=== PATIENT | female | born 1965 | race Caucasian/White ===

== ENCOUNTER 2017-12-21 06:01 | Inpatient (IN) | payer BC, OTHER ==
[~2017-12-21] VITALS: Ht 172.7 cm; Wt 71.6 kg
[~2017-12-21 06:01] MED LIST: DEXT1CAP3 PO; FLUO-103 PO; LISI2.5T2 PO
[2017-12-21] MEDS ORDERED: LORazepam 1 MG tablet PO ONE (06:25)
[2017-12-21] MEDS ORDERED: aspirin 325mg tablet PO ONE (06:45)
[2017-12-21] MEDS ORDERED: nitroGLYCERIN 0.4mg SUBLingual tab SL PRN ×3 (06:50→12:35)
[2017-12-21] MEDS ORDERED: nitroGLYCERIN 0.4mg/hour patch TD ONE (06:50)
[2017-12-21 07:08] LABS: BASOPHILS % (AUTO) 0.5 % (0-1); EOSINOPHILS # (AUTO) 0.1 X10'3 (0-0.9); EOSINOPHILS % (AUTO) 1.6 % (0-6); HEMOGLOBIN 13.8 g/dl (12.0-16.0); LYMPHOCYTES # (AUTO) 1.2 X10'3 (1.1-4.8); LYMPHOCYTES % (AUTO) 14.8 % (21-51); MEAN CORPUSCULAR HEMOGLOBIN 31.7 PG (27.0-31.0); MEAN CORPUSCULAR HGB CONC 35.4 % (33.0-36.5); MEAN CORPUSCULAR VOLUME 89.4 FL (78-98); MEAN PLATELET VOLUME 7.7 FL (7.4-10.4); MONOCYTES # (AUTO) 0.5 X10'3 (0-0.9); MONOCYTES % (AUTO) 6.5 % (2-12); NEUTROPHILS # (AUTO) 6.4 X10'3 (1.8-7.7); NEUTROPHILS % (AUTO) 76.6 % (42-75); PLATELET COUNT 217 X10'3 (140-440); RED BLOOD COUNT 4.37 X10'6 (4.20-5.60); RED CELL DISTRIBUTION WIDTH 13.3 % (11.5-14.5); WHITE BLOOD COUNT 8.4 X10'3 (4.5-11.0)
[2017-12-21 07:17] LABS: INR 0.9 INR; PROTHROMBIN TIME 9.8 SECONDS (9.0-12.0)
[2017-12-21 07:32] LABS: ALANINE AMINOTRANSFERASE 22 U/L (12-78); ALBUMIN 3.8 G/DL (3.4-5.0); ALBUMIN/GLOBULIN RATIO 1.2 (1.1-1.5); ALKALINE PHOSPHATASE 84 IU/L (46-116); ANION GAP 12 (8-16); ASPARTATE AMINO TRANSFERASE 18 U/L (10-37); BILIRUBIN,TOTAL 0.6 MG/DL (0.1-1.0); BLOOD UREA NITROGEN 9 MG/DL (7-18); BUN/CREATININE RATIO 11.8 (6.6-38.0); CALCIUM 8.7 MG/DL (8.5-10.1); CHLORIDE 107 MMOL/L (99-107); CREATININE 0.76 MG/DL (0.40-0.90); GLUCOSE 119 MG/DL (70-104); MAGNESIUM 1.8 MG/DL (1.5-2.4); POTASSIUM 3.6 MMOL/L (3.5-5.1); SODIUM 140 MMOL/L (135-145); TOTAL CARBON DIOXIDE 21.4 MMOL/L (24-32); TOTAL PROTEIN 7.1 G/DL (6.4-8.2); eGFR 81 ML/MIN
[2017-12-21] MEDS ORDERED: enoxaparin 100mg/ml syringe SUBCUT ONE (07:40)
[2017-12-21 08:10] LABS: URINE HCG NEGATIVE (NEG)
[2017-12-21 08:16] LABS: CLARITY,URINE SLIGHTLY CLOUDY (Clear); COLOR,URINE STRAW (Yellow); GLUCOSE, URINE NEGATIVE (Neg); KETONES,URINE 40 mg/dl (Neg); LEUKOCYTE ESTERASE ,URINE SMALL (Neg); NITRITES, URINE NEGATIVE (Neg); OCCULT BLOOD,URINE TRACE-LYSED (Neg); PROTEIN,URINE NEGATIVE (Neg); UROBILINOGEN,URINE 0.2 E.U/dL (0.2-1.0)
[2017-12-21 08:18] LABS: UA COLLECTION TYPE CLN CATCH MIDSTREAM
[2017-12-21 08:30] LABS: URINE AMPHETAMINE SCREEN NEGATIVE (Neg); URINE BARBITUATE SCREEN NEGATIVE (Neg); URINE BENZODIAZEPINES SCREEN NEGATIVE (Neg); URINE CANNABINOID SCREEN POSITIVE (Neg); URINE COCAINE SCREEN NEGATIVE (Neg); URINE METHADONE SCREEN NEGATIVE (Neg); URINE OPIATE SCREEN POSITIVE (Neg); URINE PHENCYCLIDINE SCREEN NEGATIVE (Neg)
[2017-12-21 08:33] LABS: SQUAMOUS EPITHELIAL CELL,UR MANY /LPF (FEW)
[2017-12-21 08:34] LABS: AMORPHOUS PHOSPHATES 2+; BACTERIA,URINE 2+ /HPF (Neg)
[2017-12-21 08:35] LABS: RBC,URINE 0-2 /HPF (0-2); WBC,URINE 0-4 /HPF (0-4)
[2017-12-21] MEDS ORDERED: ZONI100C42 PO (09:00)
[2017-12-21] MEDS ORDERED: acetaminophen 325mg tablet PO PRN ×2 (10:00)
[2017-12-21 10:48] LABS: CHOL/HDL RATIO 2.5 (0.00-4.99); CHOLESTEROL 163 MG/DL (0-200); CREATINE KINASE 44 U/L (26-192); HDL CHOLESTEROL 65 MG/DL (35-60); LDL CHOLESTEROL 87 MG/DL (50-100); TRIGLYCERIDES 83 MG/DL (20-135)
[2017-12-21 11:40] VITALS: BP 108/55
[2017-12-21] MEDS ORDERED: regadenoson 0.4mg/5ml syringe IV ONE (12:35)
[2017-12-21] MEDS ORDERED: aminophylline 250mg/10ml inj. IV PRN (12:35)
[2017-12-21] MEDS ORDERED: metoprolol tartrate 1mg/ml inj IV PRN (12:35)
[2017-12-21 15:00] VITALS: BP 106/78
[2017-12-21] MEDS: heparin, porcine 5000 units/ml vial SQ SCH ×2 (15:37→23:42)
[2017-12-21] MEDS: morphine 2 MG/ML inj. syringe IV PRN ×3 (15:37→23:21)
[2017-12-21 19:00] VITALS: BP 111/67
[2017-12-21] MEDS: QUINIDINE PO SCH (20:00)
[2017-12-21] MEDS: DEXTROMETHORPHAN HBR PO SCH (20:00)
[2017-12-21] MEDS ORDERED: aspirin 81mg tablet.DR PO ONE (20:55)
[2017-12-21] MEDS ORDERED: zonisamide 100mg capsule PO ONE (20:55)
[2017-12-21] MEDS ORDERED: atorvastatin 20mg tablet PO ONE (20:55)
[2017-12-21] MEDS ORDERED: aspirin 325mg tablet ONE (20:56)
[2017-12-21 23:00] VITALS: BP 93/48
[2017-12-22] VITALS (17 sets, daily range): BP systolic 82–156; BP diastolic 44–96
[2017-12-22] MEDS: LORazepam 1 MG tablet PO PRN ×3 (03:30→23:59)
[2017-12-22 05:55] LABS: BASOPHILS % (AUTO) 0.4 % (0-1); EOSINOPHILS # (AUTO) 0.1 X10'3 (0-0.9); EOSINOPHILS % (AUTO) 1.7 % (0-6); HEMOGLOBIN 12.1 g/dl (12.0-16.0); LYMPHOCYTES % (AUTO) 23.4 % (21-51); MEAN CORPUSCULAR HEMOGLOBIN 31.6 PG (27.0-31.0); MEAN CORPUSCULAR HGB CONC 34.7 % (33.0-36.5); MONOCYTES # (AUTO) 0.8 X10'3 (0-0.9); MONOCYTES % (AUTO) 9.5 % (2-12); NEUTROPHILS # (AUTO) 5.4 X10'3 (1.8-7.7); PLATELET COUNT 192 X10'3 (140-440); RED BLOOD COUNT 3.84 X10'6 (4.20-5.60); RED CELL DISTRIBUTION WIDTH 13.3 % (11.5-14.5); WHITE BLOOD COUNT 8.3 X10'3 (4.5-11.0)
[2017-12-22 06:13] LABS: ALANINE AMINOTRANSFERASE 11 U/L (12-78); ALBUMIN 3.3 G/DL (3.4-5.0); ALBUMIN/GLOBULIN RATIO 1.1 (1.1-1.5); ALKALINE PHOSPHATASE 71 IU/L (46-116); ANION GAP 6 (8-16); ASPARTATE AMINO TRANSFERASE 15 U/L (10-37); BILIRUBIN,TOTAL 0.6 MG/DL (0.1-1.0); BLOOD UREA NITROGEN 9 MG/DL (7-18); BUN/CREATININE RATIO 10.7 (6.6-38.0); CALCIUM 8.8 MG/DL (8.5-10.1); CHLORIDE 110 MMOL/L (99-107); CREATININE 0.84 MG/DL (0.40-0.90); GLUCOSE 85 MG/DL (70-104); POTASSIUM 4.5 MMOL/L (3.5-5.1); SODIUM 141 MMOL/L (135-145); TOTAL CARBON DIOXIDE 24.8 MMOL/L (24-32); TOTAL PROTEIN 6.4 G/DL (6.4-8.2); eGFR 72 ML/MIN
[2017-12-22] MEDS: lisinopril 10 MG tablet PO SCH (07:39)
[2017-12-22] MEDS: cefTRIAXone 1g/NS 100ml IVPB 100 ML IV SCH (08:00)
[2017-12-22] MEDS: QUINIDINE PO SCH ×2 (08:00→20:23)
[2017-12-22] MEDS: DEXTROMETHORPHAN HBR PO SCH ×2 (08:00→20:23)
[2017-12-22] MEDS ORDERED: FLUoxetine 10mg capsule PO SCH (08:00)
[2017-12-22] MEDS ORDERED: aminophylline inj. 10 ML IV ONE (08:57)
[2017-12-22] MEDS ORDERED: regadenoson 0.4mg/5ml syringe IV ONE (08:57)
[2017-12-22] MEDS: MESSAGE TO NURSING PO NR (10:00)
[2017-12-22] MEDS: morphine 2 MG/ML inj. syringe IV PRN (11:16)
[2017-12-22] MEDS ORDERED: LORazepam 2 mg/ml vial IV ONE ×2 (11:25→11:40)
[2017-12-22] MEDS: lactobacillus rhamnosus 10,000 MMU CELLS/CAPSULE PO SCH ×2 (11:46→16:40)
[2017-12-22] MEDS: heparin, porcine 5000 units/ml vial SQ SCH ×3 (11:46→23:59)
[2017-12-22] MEDS: aspirin 81mg tablet.DR PO SCH (11:46)
[2017-12-22] MEDS: zonisamide 100mg capsule PO SCH (20:23)
[2017-12-22] MEDS: atorvastatin 20mg tablet PO SCH (20:23)
[2017-12-23 03:00] VITALS: BP 92/52
[2017-12-23 06:00] VITALS: BP 122/66
[2017-12-23] MEDS: lactobacillus rhamnosus 10,000 MMU CELLS/CAPSULE PO SCH ×2 (07:30→16:59)
[2017-12-23] MEDS: heparin, porcine 5000 units/ml vial SQ SCH ×2 (07:53→17:00)
[2017-12-23] MEDS: aspirin 81mg tablet.DR PO SCH (07:53)
[2017-12-23] MEDS: lisinopril 10 MG tablet PO SCH (07:53)
[2017-12-23] MEDS: DEXTROMETHORPHAN HBR PO SCH ×2 (07:54→20:26)
[2017-12-23] MEDS: QUINIDINE PO SCH ×2 (07:54→20:26)
[2017-12-23] MEDS: cefTRIAXone 1g/NS 100ml IVPB 100 ML IV SCH (08:12)
[2017-12-23] MEDS: HYDROcodone/acetaminophen 5mg/325mg tablet PO PRN ×2 (08:12→20:32)
[2017-12-23] MEDS: MESSAGE TO NURSING PO NR (10:20)
[2017-12-23 11:00] VITALS: BP 105/63
[2017-12-23] MEDS ORDERED: ondansetron/PF 4mg/2ml inj IV PRN (13:45)
[2017-12-23] MEDS ORDERED: morphine 2 MG/ML inj. syringe IV PRN (13:45)
[2017-12-23] MEDS: morphine 2 MG/ML inj. syringe IV PRN (14:41)
[2017-12-23 15:00] VITALS: BP 109/62
[2017-12-23 19:00] VITALS: BP 94/58
[2017-12-23] MEDS: zonisamide 100mg capsule PO SCH (20:26)
[2017-12-23] MEDS: atorvastatin 20mg tablet PO SCH (20:26)
[2017-12-23] MEDS ORDERED: FLUoxetine 10mg capsule PO SCH (21:00)
[2017-12-23 23:00] VITALS: BP 110/65
[2017-12-24] MEDS: heparin, porcine 5000 units/ml vial SQ SCH ×2 (00:07→07:02)
[2017-12-24 03:00] VITALS: BP 91/42
[2017-12-24 06:00] VITALS: BP 98/54
[2017-12-24] MEDS: cefTRIAXone 1g/NS 100ml IVPB 100 ML IV SCH (07:00)
[2017-12-24] MEDS: lactobacillus rhamnosus 10,000 MMU CELLS/CAPSULE PO SCH (07:00)
[2017-12-24] MEDS: lisinopril 10 MG tablet PO SCH (07:01)
[2017-12-24] MEDS: QUINIDINE PO SCH (07:03)
[2017-12-24] MEDS: aspirin 81mg tablet.DR PO SCH (07:03)
[2017-12-24] MEDS: DEXTROMETHORPHAN HBR PO SCH (07:03)
[2017-12-24] MEDS: HYDROcodone/acetaminophen 5mg/325mg tablet PO PRN (07:03)
[2017-12-24] MEDS: MESSAGE TO NURSING PO NR (10:07)
[2017-12-24 11:00] VITALS: BP 107/59
[2017-12-24] MEDS: morphine 2 MG/ML inj. syringe IV PRN (13:08)
[2017-12-24] MEDS ORDERED: ASPI81TA52 PO (13:22)
[2017-12-24] MEDS ORDERED: LISI10TA4 PO (13:22)
== END 2017-12-24 14:51 | disposition home or self-care (01) | DRG 313 ==
LOC: ER 06:01 → ED HOLD 09:56 → PCU 3S 11:27 → CMPBEDREQ 19:34 → OBSVTOIN 20:30 → PCU 3S 12-22 12:20
PROVIDERS: ADMIT Family Medicine; ATTEND Internal Medicine Nephrology
PROC: 4A02XM4 Measurement of Cardiac Total Activity, External Approach (ICD-10-PCS; principal; 2017-12-22)
PROC: 3E073KZ Introduction of Other Diagnostic Substance into Coronary Artery, Percutaneous Approach (ICD-10-PCS; 2017-12-22)
DX: R07.89 Other chest pain (principal); E78.00 Pure hypercholesterolemia, unspecified; E78.5 Hyperlipidemia, unspecified; G89.29 Other chronic pain; I10 Essential (primary) hypertension; I34.1 Nonrheumatic mitral (valve) prolapse; Z79.82 Long term (current) use of aspirin; Z79.899 Other long term (current) drug therapy; Z88.1 Allergy status to other antibiotic agents
CPT/HCPCS: 36415; 70450; 71045; 78452; 80053; 80061; 80305; 81001; 81025; 82550; 82553; 82948; 83735; 83880; 84146; 84484; 85025; 85610; 87070; 87502; 87503; 92616; 93005; 93017; 93306; 93970; 96374; 96375; 96376; 99285; A9500; G0378; J0280; J0696; J1644; J2060; J2270; J7030

== ENCOUNTER 2017-12-29 17:14 | Emergency (ER) | payer SELFPAY ==
[~2017-12-29] VITALS: Ht 172.7 cm; Wt 67.7 kg
[~2017-12-29 17:14] MED LIST changes: +ASPI81TA52 PO; +LISI10TA4 PO; -LISI2.5T2 PO; +ZONI100C42 PO
[2017-12-29] MEDS ORDERED: lisinopril 10 MG tablet PO ONE (19:15)
[2017-12-29] MEDS ORDERED: diphenhydrAMINE 50 mg/ml inj IM ONE (19:35)
[2017-12-29] MEDS ORDERED: OLANZapine **IM** 10 mg inj. IM ONE (19:35)
[2017-12-29 20:51] LABS: BASOPHILS % (AUTO) 0.5 % (0-1); EOSINOPHILS % (AUTO) 0.6 % (0-6); HEMOGLOBIN 14.9 g/dl (12.0-16.0); LYMPHOCYTES # (AUTO) 1.1 X10'3 (1.1-4.8); MEAN CORPUSCULAR HEMOGLOBIN 31.4 PG (27.0-31.0); MEAN CORPUSCULAR HGB CONC 34.6 % (33.0-36.5); MEAN CORPUSCULAR VOLUME 90.9 FL (78-98); MEAN PLATELET VOLUME 7.7 FL (7.4-10.4); MONOCYTES # (AUTO) 0.5 X10'3 (0-0.9); MONOCYTES % (AUTO) 7.3 % (2-12); NEUTROPHILS # (AUTO) 5.8 X10'3 (1.8-7.7); NEUTROPHILS % (AUTO) 77.6 % (42-75); PLATELET COUNT 240 X10'3 (140-440); RED BLOOD COUNT 4.73 X10'6 (4.20-5.60); RED CELL DISTRIBUTION WIDTH 13.3 % (11.5-14.5); WHITE BLOOD COUNT 7.5 X10'3 (4.5-11.0)
[2017-12-29 21:15] LABS: ALANINE AMINOTRANSFERASE 34 U/L (12-78); ALBUMIN 4.2 G/DL (3.4-5.0); ALBUMIN/GLOBULIN RATIO 1.2 (1.1-1.5); ALKALINE PHOSPHATASE 85 IU/L (46-116); ANION GAP 11 (8-16); ASPARTATE AMINO TRANSFERASE 17 U/L (10-37); BILIRUBIN,TOTAL 0.6 MG/DL (0.1-1.0); BLOOD UREA NITROGEN 18 MG/DL (7-18); CALCIUM 9.3 MG/DL (8.5-10.1); CHLORIDE 103 MMOL/L (99-107); ETHANOL < 0.010 GM/DL (0.0-0.010); GLUCOSE 128 MG/DL (70-104); POTASSIUM 3.4 MMOL/L (3.5-5.1); SODIUM 141 MMOL/L (135-145); TOTAL CARBON DIOXIDE 26.6 MMOL/L (24-32); TOTAL PROTEIN 7.8 G/DL (6.4-8.2); eGFR 59 ML/MIN
[2017-12-29 22:15] LABS: URINE HCG NEGATIVE (NEG)
[2017-12-29 22:17] LABS: CLARITY,URINE Clear (Clear); GLUCOSE, URINE Negative (Neg); KETONES,URINE Negative (Neg); LEUKOCYTE ESTERASE ,URINE Trace (Neg); NITRITES, URINE Negative (Neg); OCCULT BLOOD,URINE Negative (Neg); PROTEIN,URINE Negative (Neg)
[2017-12-29 22:21] LABS: COLOR,URINE PINK (Yellow); UA COLLECTION TYPE FOLEY CATH
[2017-12-29 22:33] LABS: URINE AMPHETAMINE SCREEN NEGATIVE (Neg); URINE BARBITUATE SCREEN NEGATIVE (Neg); URINE BENZODIAZEPINES SCREEN NEGATIVE (Neg); URINE CANNABINOID SCREEN POSITIVE (Neg); URINE COCAINE SCREEN NEGATIVE (Neg); URINE METHADONE SCREEN NEGATIVE (Neg); URINE OPIATE SCREEN POSITIVE (Neg); URINE PHENCYCLIDINE SCREEN NEGATIVE (Neg)
[2017-12-29 22:35] LABS: RBC,URINE 0-2 /HPF (0-2); WBC,URINE 0-4 /HPF (0-4)
[2017-12-29 22:36] LABS: AMORPHOUS PHOSPHATES 2+; BACTERIA,URINE FEW /HPF (Neg); MUCUS STRANDS FEW /LPF (Neg); SQUAMOUS EPITHELIAL CELL,UR FEW /LPF (FEW)
[2017-12-29] MEDS ORDERED: PRED10TA PO (23:05)
[2017-12-29] MEDS ORDERED: DEXT1CAP3 (23:05)
[2017-12-29] MEDS ORDERED: PRED20TA PO (23:05)
[2017-12-29] MEDS ORDERED: GUAI473S11 PO (23:05)
[2017-12-29] MEDS ORDERED: SIMV20TA5 PO (23:05)
[2017-12-29] MEDS ORDERED: ZONI100C6 ×2 (23:05)
[2017-12-29] MEDS ORDERED: LISI10TA4 PO (23:05)
[2017-12-30] MEDS ORDERED: FLUoxetine 10mg capsule PO SCH (08:00)
[2017-12-30 15:36] VITALS: BP 107/65
== END 2017-12-30 15:37 | disposition home or self-care (01) ==
LOC: ER 17:16
DX: I10 Essential (primary) hypertension (principal); Z91.19 Patient's noncompliance with other medical treatment and regimen; E78.00 Pure hypercholesterolemia, unspecified; R56.9 Unspecified convulsions; Z88.0 Allergy status to penicillin; Z88.1 Allergy status to other antibiotic agents; Z79.82 Long term (current) use of aspirin; Z79.899 Other long term (current) drug therapy
CPT/HCPCS: 36415; 80053; 80305; 80320; 81001; 81025; 84443; 85025; 93005; 96372; 99285; A4353; J1200

== ENCOUNTER 2018-01-06 08:00 | Emergency (ER) | payer SELFPAY ==
[~2018-01-06] VITALS: Ht 172.7 cm; Wt 57.4 kg
[~2018-01-06 08:00] MED LIST changes: -ASPI81TA52 PO; +DEXT1CAP3; -DEXT1CAP3 PO; +GUAI473S11 PO; +PRED10TA PO; +PRED20TA PO; +SIMV20TA5 PO; +ZONI100C6
[2018-01-06 08:41] LABS: PARTIAL THROMBOPLASTIN TIME 28 SECONDS (22-32)
[2018-01-06 08:50] LABS: BASOPHILS # (AUTO) 0.1 X10'3 (0-0.2); BASOPHILS % (AUTO) 0.9 % (0-1); EOSINOPHILS # (AUTO) 0.1 X10'3 (0-0.9); EOSINOPHILS % (AUTO) 1.9 % (0-6); HEMATOCRIT 44.6 % (35.0-45.0); HEMOGLOBIN 15.1 g/dl (12.0-16.0); LYMPHOCYTES # (AUTO) 1.1 X10'3 (1.1-4.8); MEAN CORPUSCULAR HEMOGLOBIN 30.9 PG (27.0-31.0); MEAN CORPUSCULAR HGB CONC 33.8 % (33.0-36.5); MEAN CORPUSCULAR VOLUME 91.5 FL (78-98); MEAN PLATELET VOLUME 8.6 FL (7.4-10.4); MONOCYTES # (AUTO) 0.4 X10'3 (0-0.9); MONOCYTES % (AUTO) 6.4 % (2-12); NEUTROPHILS % (AUTO) 70.8 % (42-75); PLATELET COUNT 270 X10'3 (140-440); RED BLOOD COUNT 4.88 X10'6 (4.20-5.60); WHITE BLOOD COUNT 5.7 X10'3 (4.5-11.0)
[2018-01-06 08:55] LABS: ALANINE AMINOTRANSFERASE 30 U/L (12-78); ALBUMIN 4.5 G/DL (3.4-5.0); ALBUMIN/GLOBULIN RATIO 1.2 (1.1-1.5); ALKALINE PHOSPHATASE 92 IU/L (46-116); ANION GAP 11 (8-16); ASPARTATE AMINO TRANSFERASE 19 U/L (10-37); BILIRUBIN,TOTAL 0.6 MG/DL (0.1-1.0); BLOOD UREA NITROGEN 14 MG/DL (7-18); BUN/CREATININE RATIO 14.6 (6.6-38.0); CALCIUM 9.5 MG/DL (8.5-10.1); CHLORIDE 105 MMOL/L (99-107); CREATININE 0.96 MG/DL (0.40-0.90); GLUCOSE 114 MG/DL (70-104); POTASSIUM 3.6 MMOL/L (3.5-5.1); SODIUM 141 MMOL/L (135-145); TOTAL PROTEIN 8.4 G/DL (6.4-8.2); eGFR 62 ML/MIN
[2018-01-06 09:57] VITALS: BP 121/81
[2018-01-06] MEDS ORDERED: ibuprofen tablet 400 MG TABLET PO ONE (10:45)
[2018-01-06] MEDS ORDERED: aspirin 81mg tab.chew PO ONE (10:45)
== END 2018-01-06 11:20 | disposition home or self-care (01) ==
LOC: ER 08:01
DX: R07.89 Other chest pain (principal); E78.00 Pure hypercholesterolemia, unspecified; I10 Essential (primary) hypertension; Z88.0 Allergy status to penicillin; Z88.1 Allergy status to other antibiotic agents; Z79.899 Other long term (current) drug therapy
CPT/HCPCS: 36415; 71045; 80053; 84484; 85025; 85610; 85730; 93005; 99285